=== PATIENT | female | born 1965 | race Caucasian/White ===

== ENCOUNTER 2020-03-17 11:23 | Observation (INO) ==
[2020-03-17] MEDS ORDERED: Ondansetron 4 MG/2 ML VIAL IVP PRN (12:26)
[2020-03-17] MEDS ORDERED: Naloxone 0.4 MG/ML INJ IVP PRN (12:26)
[2020-03-17] MEDS: 0.9 % Sodium Chloride 1,000 ML IVC SCH (12:54)
[2020-03-17] MEDS: *HR* Heparin 5,000 UNIT/ML VIAL SQ SCH ×2 (13:24→22:08)
[2020-03-17] MEDS ORDERED: Budesonide/Formoterol 160/4.5 1 PUFF INH IH PRN (13:46)
[2020-03-17 14:35] LABS: Hepatitis B Surface Antigen Nonreactive (Nonreactive)
[2020-03-17 15:04] LABS: Hepatitis C Virus Antibody Nonreactive (Nonreactive)
[2020-03-17 15:05] LABS: Hepatitis B Core IgM Nonreactive (Nonreactive)
[2020-03-17 15:06] LABS: Hepatitis A Antibody IgM Nonreactive (Nonreactive)
[2020-03-17] MEDS: Piperacillin/Tazobactam 3.375 GM in 0.9 % Sodium Chloride Mini Bag 100 ML IVPB SCH ×2 (15:54→23:01)
[2020-03-17] MEDS: *HR* OxyCODONE Immed Rel 5 MG TABLET PO PRN ×2 (16:05→22:08)
[2020-03-17] MEDS ORDERED: Ketorolac 30 MG/ML VIAL IVP ONE (17:17)
[2020-03-18 05:14] LABS: Alanine Aminotransferase 331 Units/L (7-52); Albumin 3.7 g/dL (3.5-5.7); Albumin/Globulin Ratio 1.4 (1.1-2.2); Alkaline Phosphatase 121 Units/L (34-104); Aspartate Amino Transferase 241 Units/L (13-39); BUN/Creatinine Ratio 9 (6-26); Bilirubin,Total 1.8 mg/dL (0.3-1.0); Blood Urea Nitrogen 8 mg/dL (6-20); Calcium 8.8 mg/dL (8.6-10.3); Carbon Dioxide 25 mEq/L (23-29); Chloride 109 mEq/L (98-107); Globulin 2.6 g/dL (2.4-3.5); Glucose 102 mg/dL (70-105); Osmolality,Calculated 291 (280-300); Potassium 3.7 mEq/L (3.5-5.1); Sodium 141 mEq/L (136-145); Total Protein 6.3 g/dL (6.4-8.9); eGFR For African Americans > 60 (> 60); eGFR For Non-African Americans > 60 (> 60)
[2020-03-18] MEDS: Piperacillin/Tazobactam 3.375 GM in 0.9 % Sodium Chloride Mini Bag 100 ML IVPB SCH ×2 (07:16→15:10)
[2020-03-18] MEDS: 0.9 % Sodium Chloride 1,000 ML IVC SCH (07:17)
[2020-03-18] MEDS: *HR* Heparin 5,000 UNIT/ML VIAL SQ SCH ×3 (07:21→20:00)
[2020-03-18] MEDS ORDERED: FLUoxetine 20 MG CAPSULE PO SCH (09:00)
[2020-03-18] MEDS ORDERED: Ascorbic Acid 500 MG TABLET PO SCH (09:00)
[2020-03-18] MEDS ORDERED: Cholecalciferol (D-3) 1,000 UNIT (25MCG) TABLET PO SCH (09:00)
[2020-03-18] MEDS: *HR* OxyCODONE Immed Rel 5 MG TABLET PO PRN ×2 (12:21→17:44)
[2020-03-18] MEDS ORDERED: Acetaminophen IV 1,000 MG/100 ML BAG ONE (20:05)
[2020-03-18] MEDS ORDERED: *HR* Propofol 200 MG/20 ML VIAL IVP ONE (20:12)
[2020-03-18] MEDS ORDERED: *HR* Succinylcholine 200 MG/10 ML VIAL IVP ONE (20:12)
[2020-03-18] MEDS ORDERED: Ondansetron 4 MG/2 ML VIAL ONE (20:12)
[2020-03-18] MEDS ORDERED: Lidocaine -MPF 2% 2 ML VIAL ONE (20:12)
[2020-03-18] MEDS ORDERED: Dexamethasone 4 MG/ML VIAL ONE (20:12)
[2020-03-18] MEDS ORDERED: *HR* Rocuronium Bromide 50 MG/5 ML VIAL ONE (20:12)
[2020-03-18] MEDS ORDERED: *HR* FentaNYL (PF) 100 MCG/2 ML VIAL ONE (20:12)
[2020-03-18] MEDS ORDERED: Bupivacaine/EPI 1:200k 0.25%PF 30 ML VIAL ONE (20:18)
[2020-03-18] MEDS ORDERED: Isovue-300 50ML VIAL ONE (20:19)
[2020-03-18] MEDS ORDERED: *HR* HYDROMORPHONE 2 MG/ML VIAL ONE (21:14)
[2020-03-18] MEDS ORDERED: *HR* PHENYLEPHRINE 1,000 MCG/10 ML SYRINGE IVP ONE (21:14)
[2020-03-18] MEDS ORDERED: Ondansetron 4 MG/2 ML VIAL IVP PRN ×2 (21:34→23:16)
[2020-03-18] MEDS ORDERED: *HR* Labetalol 20 MG/4 ML SYRINGE IVP PRN (21:34)
[2020-03-18] MEDS ORDERED: *HR* HYDROmorphone (PF) 1 MG/ML SYRINGE IVP PRN (21:34)
[2020-03-18] MEDS ORDERED: *HR* Promethazine 25 MG/ML VIAL IVP PRN (21:34)
[2020-03-18] MEDS ORDERED: Ringers Solution, Lactated 500 ML IVC ONE (22:18)
[2020-03-18] MEDS ORDERED: Acetaminophen 325 MG TABLET PO PRN (23:16)
[2020-03-18] MEDS ORDERED: Budesonide/Formoterol 160/4.5 1 PUFF INH IH PRN (23:16)
[2020-03-18] MEDS ORDERED: *HR* OxyCODONE Immed Rel 5 MG TABLET PO PRN (23:16)
[2020-03-18] MEDS ORDERED: Naloxone 0.4 MG/ML INJ IVP PRN (23:16)
[2020-03-18] MEDS: Ringers Solution, Lactated 1,000 ML IVC SCH (23:35)
[2020-03-19 01:54] LABS: Basophils % 0.3 %; Eosinophils % 0.3 %; Hematocrit 42.2 % (35.3-44.9); Hemoglobin 13.6 g/dL (11.5-15.4); Immature Granulocytes % 0.7 % (0-4); Lymphocytes # 0.6 K/mcL (0.6-4.6); Lymphocytes % 6.2 %; Mean Corpuscular HGB Conc 32.2 g/dL (31.6-35.5); Mean Corpuscular Hemoglobin 29.4 pg (28.0-33.3); Mean Corpuscular Volume 91.3 fL (83.0-100.0); Monocytes # 0.2 K/mcL (0.0-1.3); Monocytes % 2.5 %; Neutrophils # 8.6 K/mcL (1.6-8.9); Platelet Count 226 K/mcL (140-400); Red Blood Count 4.62 M/mcL (3.82-4.97); Red Cell Distribution Width 13.8 % (11.5-14.5); White Blood Count 9.6 K/mcL (4.3-11.1)
[2020-03-19] MEDS ORDERED: FLUoxetine 20 MG CAPSULE PO SCH (09:00)
[2020-03-19] MEDS ORDERED: Cholecalciferol (D-3) 1,000 UNIT (25MCG) TABLET PO SCH (09:00)
[2020-03-19] MEDS ORDERED: Ascorbic Acid 500 MG TABLET PO SCH (09:00)
[2020-03-19 10:24] LABS: Alanine Aminotransferase 223 Units/L (7-52); Albumin 3.9 g/dL (3.5-5.7); Albumin/Globulin Ratio 1.3 (1.1-2.2); Alkaline Phosphatase 116 Units/L (34-104); Aspartate Amino Transferase 76 Units/L (13-39); BUN/Creatinine Ratio 12 (6-26); Bilirubin,Total 0.8 mg/dL (0.3-1.0); Blood Urea Nitrogen 10 mg/dL (6-20); Calcium 9.5 mg/dL (8.6-10.3); Carbon Dioxide 28 mEq/L (23-29); Chloride 105 mEq/L (98-107); Globulin 2.9 g/dL (2.4-3.5); Glucose 149 mg/dL (70-105); Osmolality,Calculated 292 (280-300); Potassium 3.7 mEq/L (3.5-5.1); Sodium 140 mEq/L (136-145); Total Protein 6.8 g/dL (6.4-8.9); eGFR For African Americans > 60 (> 60); eGFR For Non-African Americans > 60 (> 60)
[2020-03-19] MEDS: Ringers Solution, Lactated 1,000 ML IVC SCH (10:54)
[2020-03-19 11:19] VITALS: BP 135/73
== END 2020-03-19 13:33 | disposition home or self-care (01) ==
LOC: 3BNU
PROVIDERS: ADMIT Family Medicine; ATTEND Family Medicine